=== PATIENT | male | born 1955 | race African-American/Black ===

== ENCOUNTER 2018-03-23 18:51 | Inpatient (IN) ==
[2018-03-23] MEDS ORDERED: methylPREDNISolone SOD SUC 125 MG/2 ML VIAL ONE (18:56)
[2018-03-23] MEDS ORDERED: TERBUTALINE 1 MG/1 ML VIAL SUBCUT ONE (18:57)
[2018-03-23] MEDS ORDERED: ALBUTEROL/IPRATROPIUM 3 ML NEB RESP TX STA (19:04)
[2018-03-23] MEDS ORDERED: methylPREDNISolone SOD SUC 125 MG/2 ML VIAL IV STA (19:04)
[2018-03-23 19:13] LABS: ABG HCO3 24.4 MMOL/L (20-26); ABG Oxygen Saturation 99.1 % (95-100); ABG PCO2 45.6 MM HG (35-48); ABG PH 7.362 (7.35-7.45); ABG TCO2 22.2 MMOL/L (23-27)
[2018-03-23 19:34] LABS: Basophils # 0.1 10*3/uL (0.0-0.2); Basophils % 0.6 % (0.0-0.8); Eosinophils # 0.1 10*3/uL (0.0-0.87); Eosinophils % 0.5 % (0.00-10.9); Hematocrit 41.1 VOL% (42.0-52.0); Immature Granulocytes % 0.4 %; Immature Granulocytes Absolute 0.04 #; Lymphocytes # 3.7 10*3/uL (1.4-4.0); Mean Corpuscular HGB Conc 34.1 GM/DL (32-36); Mean Corpuscular Hemoglobin 34 PG (27-34); Mean Corpuscular Volume 99.5 FL (87-102); Mean Platelet Volume 9.8 FL (9.6-12.0); Monocytes # 1.2 10*3/uL (0.11-0.8); Monocytes % 11.1 % (1.7-12.7); Neutrophils # 5.5 10*3/uL (1.4-7.4); Neutrophils % 52.4 % (38.7-73.9); Platelet Count 276 T/CUMM (130-400); Red Blood Count 4.13 MC/CUMM (3.8-5.5); Red Cell Distribution Width 13.4 % (9.3-17.3); White Blood Count 10.4 T/CUMM (4-12)
[2018-03-23] MEDS ORDERED: MORPHINE 4 MG/1 ML VIAL IV STA (19:35)
[2018-03-23] MEDS ORDERED: ONDANSETRON 4 MG/2 ML VIAL IV ONE (19:35)
[2018-03-23 19:43] LABS: INR 0.9; PT Patient Result 9.4 SECS
[2018-03-23] MEDS ORDERED: ROCURONIUM 100 MG/10 ML VIAL IV ONE (19:47)
[2018-03-23] MEDS ORDERED: ETOMIDATE 20 MG/10 ML VIAL IV ONE (19:47)
[2018-03-23 20:03] LABS: Apearance,Urine Slightly Hazy (Clear); Bacteria,Urine Occasional /HPF (Few); Bilirubin,Urine Negative (Negative); Blood, Urine Small mg/dL (Negative); Glucose,Urine (UA) Negative (Negative); Ketones,Urine Negative (Negative); Nitrite,Urine Negative (Negative); Protein,Urine Negative; RBC,Urine 1 /HPF (0-4); Squamous Epithelial Cell,Urine Occasional /HPF (0-10); Urine Color Yellow (Yellow); Urine Specific Gravity 1.006 (1.001-1.035); Urine Urobilinogen < 2.0 EU/DL (0.2-1.0); WBC,Urine 2 /HPF (0-6)
[2018-03-23 20:13] LABS: Albumin 4.2 G/DL (3.4-5.0); Bilirubin,Total 0.4 MG/DL (0.2-1.0); Calcium 8.9 MG/DL (8.5-10.1); Osmolality,Calculated 269.1 MOS/KG (273-304); Potassium 3.2 MMOL/L (3.5-5.1)
[2018-03-23 20:26] LABS: Barbiturates Screen,Urine Negative (Negative); Benzodiazepines Screen,Urine Negative (Negative); Cannabinoid Screen,Urine Negative (Negative); Opiate Screen,Urine Negative (Negative); Phencyclidine Screen,Urine Negative (Negative)
[2018-03-23] MEDS ORDERED: ASPIRIN 325 MG TABLET PO STA (20:29)
[2018-03-23] MEDS ORDERED: NITROGLYCERIN SL 0.4 MG TABLET SL STA (20:35)
[2018-03-23] MEDS ORDERED: POTASSIUM BICARB EFFERVESCENT 25 MEQ TABLET PO ONE (20:55)
[2018-03-23] MEDS ORDERED: NICOTINE 21 MG/24 HR PATCH TRANSDERM PRN (21:43)
[2018-03-23] MEDS ORDERED: ONDANSETRON 4 MG/2 ML VIAL IV PRN (21:43)
[2018-03-23] MEDS ORDERED: LACTULOSE 20 GM/30 ML UDCUP PO PRN (21:43)
[2018-03-23] MEDS ORDERED: diphenhydrAMINE CAP 25 MG CAPSULE PO PRN (21:43)
[2018-03-23] MEDS ORDERED: ACETAMINOPHEN 325 MG TABLET PO PRN (21:43)
[2018-03-23] MEDS ORDERED: ENOXAPARIN 80 MG/0.8 ML SYRINGE SUBCUT ONE (23:00)
[2018-03-23] MEDS: ALBUTEROL/IPRATROPIUM 3 ML NEB RESP TX SCH (23:06)
[2018-03-23] MEDS ORDERED: MELOXICAM 7.5 MG TABLET PO PRN (23:40)
[2018-03-23] MEDS: NITROGLYCERIN SL 0.4 MG TABLET SL PRN ×3 (23:40→23:56)
[2018-03-23] MEDS ORDERED: MORPHINE 4 MG/1 ML VIAL IV PRN (23:41)
[2018-03-23] MEDS ORDERED: ASPIRIN CHEW 81 MG TABLET PO ONE (23:41)
[2018-03-24] MEDS: SODIUM CHLORIDE 0.9% 1,000 ML IV SCH ×2 (00:05→10:25)
[2018-03-24] MEDS ORDERED: INFLUENZA VIRUS VACCINE 0.5 ML SYRINGE IM ONE (02:04)
[2018-03-24] MEDS: ALBUTEROL/IPRATROPIUM 3 ML NEB RESP TX SCH ×3 (03:01→11:37)
[2018-03-24 04:23] LABS: Basophils % 0.2 % (0.0-0.8); Hematocrit 38.7 VOL% (42.0-52.0); Hemoglobin 13.3 GM/DL (14.0-18.0); Immature Granulocytes % 0.3 %; Immature Granulocytes Absolute 0.02 #; Lymphocytes # 0.6 10*3/uL (1.4-4.0); Mean Corpuscular HGB Conc 34.4 GM/DL (32-36); Mean Corpuscular Hemoglobin 35 PG (27-34); Mean Corpuscular Volume 100.5 FL (87-102); Monocytes # 0.1 10*3/uL (0.11-0.8); Monocytes % 1.3 % (1.7-12.7); Neutrophils # 5.5 10*3/uL (1.4-7.4); Neutrophils % 88.2 % (38.7-73.9); Platelet Count 250 T/CUMM (130-400); Red Blood Count 3.85 MC/CUMM (3.8-5.5); Red Cell Distribution Width 13.3 % (9.3-17.3); White Blood Count 6.2 T/CUMM (4-12)
[2018-03-24 04:49] LABS: Bilirubin,Total 0.6 MG/DL (0.2-1.0); Calcium 8.4 MG/DL (8.5-10.1); Osmolality,Calculated 276.8 MOS/KG (273-304); Potassium 3.7 MMOL/L (3.5-5.1); Total Protein 7.6 G/DL (6.4-8.3)
[2018-03-24] MEDS ORDERED: methylPREDNISolone SOD SUC 40 MG/1 ML VIAL IV SCH (07:30)
[2018-03-24] MEDS: GABAPENTIN 100 MG CAPSULE PO SCH ×2 (08:19→14:22)
[2018-03-24] MEDS ORDERED: FLUTICASONE INH SCH (09:00)
[2018-03-24] MEDS ORDERED: CITALOPRAM 20 MG TABLET PO SCH (09:00)
[2018-03-24] MEDS ORDERED: SALMETEROL INH SCH (09:00)
[2018-03-24] MEDS ORDERED: CLOPIDOGREL 75 MG TABLET PO SCH (09:00)
[2018-03-24] MEDS ORDERED: LOSARTAN 50 MG TABLET PO SCH (09:00)
[2018-03-24] MEDS ORDERED: PANTOPRAZOLE 40 MG TABLET PO SCH (09:00)
[2018-03-24] MEDS ORDERED: DILTIAZEM CD 120 MG CAPSULE PO SCH (09:00)
[2018-03-24] MEDS ORDERED: ATORVASTATIN 40 MG TABLET PO SCH (09:00)
[2018-03-24] MEDS ORDERED: LINACLOTIDE 145 MCG CAPSULE PO SCH (15:00)
[2018-03-24 16:22] VITALS: BP 139/95
[2018-03-24] MEDS ORDERED: MONTELUKAST 10 MG TABLET PO SCH (21:00)
== END 2018-03-24 16:20 | disposition hospice, home (50) | DRG 191 ==
LOC: N.ED 18:51 → N.EDINP 21:43 → N.5E 22:14
PROVIDERS: ADMIT Family Medicine; ATTEND Family Medicine

== ENCOUNTER 2019-04-18 08:52 | Inpatient (IN) ==
[2019-04-18] MEDS ORDERED: methylPREDNISolone SOD SUC 125 MG/2 ML VIAL IV STA (09:15)
[2019-04-18] MEDS ORDERED: ALBUTEROL/IPRATROPIUM 3 ML NEB RESP TX STA (09:15)
[2019-04-18 09:32] LABS: Basophils # 0.1 10*3/uL (0.0-0.2); Basophils % 0.4 % (0.0-0.8); Eosinophils # 0.1 10*3/uL (0.0-0.87); Eosinophils % 0.5 % (0.00-10.9); Hematocrit 35.3 VOL% (42.0-52.0); Hemoglobin 11.7 GM/DL (14.0-18.0); Immature Granulocytes % 0.5 %; Immature Granulocytes Absolute 0.07 #; Lymphocytes # 2.4 10*3/uL (1.4-4.0); Lymphocytes % 17.1 % (21.2-54.2); Mean Corpuscular HGB Conc 33.1 GM/DL (32-36); Mean Corpuscular Volume 99.2 FL (87-102); Mean Platelet Volume 8.5 FL (9.6-12.0); Monocytes % 9.5 % (1.7-12.7); Platelet Count 475 T/CUMM (130-400); Red Blood Count 3.56 MC/CUMM (3.8-5.5); Red Cell Distribution Width 15.9 % (9.3-17.3); White Blood Count 13.9 T/CUMM (4-12)
[2019-04-18 09:51] LABS: Albumin 3.8 G/DL (3.4-5.0); Bilirubin,Total 0.5 MG/DL (0.2-1.0); Calcium 9.4 MG/DL (8.5-10.1); Osmolality,Calculated 283.8 MOS/KG (273-304); Total Protein 7.4 G/DL (6.4-8.3)
[2019-04-18 10:10] LABS: ABG Base Excess 8.8 MMOL/L (-2.5-2.5); ABG HCO3 32.5 MMOL/L (20-26); ABG Oxygen Saturation 94.1 % (95-100); ABG PH 7.471 (7.35-7.45); ABG PO2 66.6 MM HG (80-95); ABG TCO2 30.3 MMOL/L (23-27)
[2019-04-18] MEDS ORDERED: LOSARTAN 50 MG TABLET PO SCH (10:30)
[2019-04-18 10:46] LABS: Barbiturates Screen,Urine Negative (Negative); Benzodiazepines Screen,Urine Negative (Negative); Cannabinoid Screen,Urine Negative (Negative); Opiate Screen,Urine Positive (Negative); Phencyclidine Screen,Urine Negative (Negative)
[2019-04-18 10:55] LABS: Apearance,Urine CLEAR (Clear); Bilirubin,Urine Negative (Negative); Blood, Urine Small mg/dL (Negative); Glucose,Urine (UA) Negative (Negative); Ketones,Urine Negative (Negative); Mucus,Urine Occasional /LPF (Occasional); Nitrite,Urine Negative (Negative); Protein,Urine Negative; RBC,Urine 1 /HPF (0-4); Squamous Epithelial Cell,Urine Occasional /HPF (0-10); Urine Color Colorless (Yellow); Urine Specific Gravity 1.006 (1.001-1.035); Urine Urobilinogen < 2.0 EU/DL (0.2-1.0); WBC,Urine 1 /HPF (0-6)
[2019-04-18] MEDS ORDERED: SILVER SULFADIAZINE 1% CREAM 25 GM TUBE TOP STA (11:01)
[2019-04-18] MEDS: DILTIAZEM 60 MG TABLET PO SCH ×2 (11:12→20:54)
[2019-04-18] MEDS ORDERED: DOCUSATE SODIUM 100 MG CAPSULE PO PRN (11:44)
[2019-04-18] MEDS ORDERED: NICOTINE 21 MG/24 HR PATCH TRANSDERM PRN (11:44)
[2019-04-18] MEDS ORDERED: BISACODYL 5 MG TABLET PO PRN (11:44)
[2019-04-18] MEDS ORDERED: ONDANSETRON 4 MG/2 ML VIAL IV PRN (11:44)
[2019-04-18] MEDS ORDERED: ACETAMINOPHEN 325 MG TABLET PO PRN (11:44)
[2019-04-18] MEDS ORDERED: FUROSEMIDE 20 MG/2 ML VIAL IV STA (11:50)
[2019-04-18 12:38] LABS: Risk Ratio 2.02; VLDL CHOLESTEROL 16.6 MG/DL
[2019-04-18] MEDS: ALBUTEROL/IPRATROPIUM 3 ML NEB RESP TX SCH ×2 (13:21→19:19)
[2019-04-18] MEDS ORDERED: INFLUENZA VIRUS VACCINE 0.5 ML SYRINGE IM ONE (13:52)
[2019-04-18] MEDS: PANTOPRAZOLE 40 MG TABLET PO SCH (14:22)
[2019-04-18] MEDS: POTASSIUM CHLORIDE 20 MEQ TABLET PO PRN ×3 (14:23→18:25)
[2019-04-18] MEDS ORDERED: MAGNESIUM SULF RIDER 4 GM in PREMIX 1 EACH IV PRN (14:48)
[2019-04-18] MEDS ORDERED: MAGNESIUM SULF RIDER 2 GM in PREMIX 1 EACH IV PRN (14:48)
[2019-04-18] MEDS ORDERED: PANTOPRAZOLE 40 MG TABLET PO SCH (15:30)
[2019-04-18] MEDS ORDERED: hydrALAZINE 20 MG/1 ML VIAL IV PRN (16:22)
[2019-04-18] MEDS: LINACLOTIDE 145 MCG CAPSULE PO SCH (16:54)
[2019-04-18] MEDS: ATORVASTATIN 40 MG TABLET PO SCH (16:54)
[2019-04-18] MEDS: MONTELUKAST 10 MG TABLET PO SCH (16:54)
[2019-04-18] MEDS: CITALOPRAM 20 MG TABLET PO SCH (16:54)
[2019-04-18] MEDS: ASPIRIN EC 81 MG TABLET PO SCH (16:55)
[2019-04-18] MEDS: CLOPIDOGREL 75 MG TABLET PO SCH (16:55)
[2019-04-18] MEDS: LOSARTAN 50 MG TABLET PO SCH (16:56)
[2019-04-18] MEDS: BUDESONIDE/FORMOTEROL 160-4.5 INHALER 6 GM INH SCH (16:59)
[2019-04-18] MEDS: GABAPENTIN 100 MG CAPSULE PO SCH ×2 (18:00→20:54)
[2019-04-18] MEDS: methylPREDNISolone SOD SUC 125 MG/2 ML VIAL IV SCH (18:26)
[2019-04-18] MEDS ORDERED: ALBUTEROL 2.5 MG/3 ML NEB RESP TX PRN (19:00)
[2019-04-18] MEDS: MEGESTROL 40 MG TABLET PO SCH (20:54)
[2019-04-18] MEDS: FLUTICASONE/SALMETEROL 100-50 DISKUS 14 DOSE INH SCH (20:54)
[2019-04-18] MEDS: ENOXAPARIN 40 MG/0.4 ML SYRINGE SUBCUT SCH (20:54)
[2019-04-19] MEDS: ALBUTEROL/IPRATROPIUM 3 ML NEB RESP TX SCH ×6 (00:54→23:14)
[2019-04-19] MEDS: methylPREDNISolone SOD SUC 125 MG/2 ML VIAL IV SCH ×2 (01:03→09:51)
[2019-04-19 05:23] LABS: Hematocrit 32.4 VOL% (42.0-52.0); Hemoglobin 10.8 GM/DL (14.0-18.0); Immature Granulocytes % 0.5 %; Immature Granulocytes Absolute 0.04 #; Lymphocytes # 0.8 10*3/uL (1.4-4.0); Lymphocytes % 9.5 % (21.2-54.2); Mean Corpuscular HGB Conc 33.3 GM/DL (32-36); Mean Corpuscular Volume 96.1 FL (87-102); Mean Platelet Volume 8.9 FL (9.6-12.0); Monocytes % 4.1 % (1.7-12.7); Neutrophils % 85.9 % (38.7-73.9); Platelet Count 494 T/CUMM (130-400); Red Blood Count 3.37 MC/CUMM (3.8-5.5); Red Cell Distribution Width 15.5 % (9.3-17.3); White Blood Count 8.7 T/CUMM (4-12)
[2019-04-19 05:36] LABS: Osmolality,Calculated 277.7 MOS/KG (273-304)
[2019-04-19] MEDS: LOSARTAN 50 MG TABLET PO SCH (09:30)
[2019-04-19] MEDS: BUDESONIDE/FORMOTEROL 160-4.5 INHALER 6 GM INH SCH (09:50)
[2019-04-19] MEDS: CLOPIDOGREL 75 MG TABLET PO SCH (09:52)
[2019-04-19] MEDS: LINACLOTIDE 145 MCG CAPSULE PO SCH (09:52)
[2019-04-19] MEDS: ASPIRIN EC 81 MG TABLET PO SCH (09:52)
[2019-04-19] MEDS: CITALOPRAM 20 MG TABLET PO SCH (09:52)
[2019-04-19] MEDS: MEGESTROL 40 MG TABLET PO SCH ×3 (09:53→21:36)
[2019-04-19] MEDS: ATORVASTATIN 40 MG TABLET PO SCH (09:53)
[2019-04-19] MEDS: DILTIAZEM 60 MG TABLET PO SCH ×2 (09:53→21:35)
[2019-04-19] MEDS: NICOTINE 14 MG/24 HR PATCH TRANSDERM SCH (09:55)
[2019-04-19] MEDS: GABAPENTIN 100 MG CAPSULE PO SCH ×3 (09:55→21:36)
[2019-04-19] MEDS: PANTOPRAZOLE 40 MG TABLET PO SCH (09:55)
[2019-04-19] MEDS: FLUTICASONE/SALMETEROL 100-50 DISKUS 14 DOSE INH SCH ×2 (09:56→21:35)
[2019-04-19] MEDS: MONTELUKAST 10 MG TABLET PO SCH (09:57)
[2019-04-19] MEDS: POTASSIUM CHLORIDE 20 MEQ TABLET PO PRN (10:01)
[2019-04-19] MEDS: ENOXAPARIN 40 MG/0.4 ML SYRINGE SUBCUT SCH (21:36)
[2019-04-20] MEDS: ALBUTEROL/IPRATROPIUM 3 ML NEB RESP TX SCH ×5 (03:52→18:59)
[2019-04-20 07:31] LABS: Basophils % 0.1 % (0.0-0.8); Hematocrit 30.9 VOL% (42.0-52.0); Hemoglobin 10.4 GM/DL (14.0-18.0); Immature Granulocytes % 0.6 %; Immature Granulocytes Absolute 0.09 #; Lymphocytes # 0.7 10*3/uL (1.4-4.0); Lymphocytes % 4.2 % (21.2-54.2); Mean Corpuscular HGB Conc 33.7 GM/DL (32-36); Mean Corpuscular Volume 95.4 FL (87-102); Mean Platelet Volume 8.5 FL (9.6-12.0); Monocytes % 8.3 % (1.7-12.7); Neutrophils % 86.8 % (38.7-73.9); Platelet Count 452 T/CUMM (130-400); Red Blood Count 3.24 MC/CUMM (3.8-5.5); Red Cell Distribution Width 15.4 % (9.3-17.3); White Blood Count 15.3 T/CUMM (4-12)
[2019-04-20 07:52] LABS: Calcium 8.9 MG/DL (8.5-10.1); Osmolality,Calculated 277.1 MOS/KG (273-304)
[2019-04-20 08:04] LABS: Hypochromasia 1+; Lymphocytes 5 % (20-55); Segmented Neutrophils 93 % (50-85); Total Cells Counted 100
[2019-04-20] MEDS: LOSARTAN 50 MG TABLET PO SCH (09:34)
[2019-04-20] MEDS: PANTOPRAZOLE 40 MG TABLET PO SCH (09:34)
[2019-04-20] MEDS: DILTIAZEM 60 MG TABLET PO SCH ×2 (09:34→20:34)
[2019-04-20] MEDS: CLOPIDOGREL 75 MG TABLET PO SCH (09:34)
[2019-04-20] MEDS: GABAPENTIN 100 MG CAPSULE PO SCH ×3 (09:34→20:34)
[2019-04-20] MEDS: ASPIRIN EC 81 MG TABLET PO SCH (09:36)
[2019-04-20] MEDS: CITALOPRAM 20 MG TABLET PO SCH (09:36)
[2019-04-20] MEDS: MONTELUKAST 10 MG TABLET PO SCH (09:36)
[2019-04-20] MEDS: NICOTINE 14 MG/24 HR PATCH TRANSDERM SCH (09:37)
[2019-04-20] MEDS: ATORVASTATIN 40 MG TABLET PO SCH (09:37)
[2019-04-20] MEDS: BUDESONIDE/FORMOTEROL 160-4.5 INHALER 6 GM INH SCH (09:38)
[2019-04-20] MEDS: FLUTICASONE/SALMETEROL 100-50 DISKUS 14 DOSE INH SCH ×2 (09:38→20:34)
[2019-04-20] MEDS: MEGESTROL 40 MG TABLET PO SCH ×3 (09:42→20:34)
[2019-04-20] MEDS: FLUTICASONE 50 MCG NASAL SPRAY 16 GM BOTTLE BOTH NARES SCH (11:21)
[2019-04-20] MEDS: LINACLOTIDE 145 MCG CAPSULE PO SCH (11:23)
[2019-04-20] MEDS: HydrOXYzine PAMOATE 25 MG CAPSULE PO PRN (14:57)
[2019-04-20] MEDS: ENOXAPARIN 40 MG/0.4 ML SYRINGE SUBCUT SCH (20:34)
[2019-04-21] MEDS: ALBUTEROL/IPRATROPIUM 3 ML NEB RESP TX SCH ×6 (00:33→19:14)
[2019-04-21 08:10] LABS: Basophils % 0.1 % (0.0-0.8); Hematocrit 30.5 VOL% (42.0-52.0); Hemoglobin 10.2 GM/DL (14.0-18.0); Immature Granulocytes % 0.8 %; Immature Granulocytes Absolute 0.11 #; Lymphocytes # 1.8 10*3/uL (1.4-4.0); Mean Corpuscular HGB Conc 33.4 GM/DL (32-36); Mean Corpuscular Volume 97.1 FL (87-102); Mean Platelet Volume 8.4 FL (9.6-12.0); Monocytes % 12.2 % (1.7-12.7); Neutrophils % 74.9 % (38.7-73.9); Platelet Count 451 T/CUMM (130-400); Red Blood Count 3.14 MC/CUMM (3.8-5.5); Red Cell Distribution Width 15.7 % (9.3-17.3); White Blood Count 14.6 T/CUMM (4-12)
[2019-04-21 08:37] LABS: Calcium 8.7 MG/DL (8.5-10.1); Osmolality,Calculated 283.3 MOS/KG (273-304)
[2019-04-21 08:47] LABS: Calcium 8.7 MG/DL (8.5-10.1); Osmolality,Calculated 284.3 MOS/KG (273-304)
[2019-04-21] MEDS: DILTIAZEM 60 MG TABLET PO SCH ×2 (09:45→21:42)
[2019-04-21] MEDS: CITALOPRAM 20 MG TABLET PO SCH (09:46)
[2019-04-21] MEDS: ATORVASTATIN 40 MG TABLET PO SCH (09:46)
[2019-04-21] MEDS: MONTELUKAST 10 MG TABLET PO SCH (09:46)
[2019-04-21] MEDS: MEGESTROL 40 MG TABLET PO SCH ×3 (09:46→21:46)
[2019-04-21] MEDS: FLUTICASONE/SALMETEROL 100-50 DISKUS 14 DOSE INH SCH ×2 (09:47→21:46)
[2019-04-21] MEDS: predniSONE 20 MG TABLET PO SCH (09:47)
[2019-04-21] MEDS: ASPIRIN EC 81 MG TABLET PO SCH (09:47)
[2019-04-21] MEDS: BUDESONIDE/FORMOTEROL 160-4.5 INHALER 6 GM INH SCH (09:47)
[2019-04-21] MEDS: LOSARTAN 50 MG TABLET PO SCH (09:47)
[2019-04-21] MEDS: CLOPIDOGREL 75 MG TABLET PO SCH (09:47)
[2019-04-21] MEDS: FLUTICASONE 50 MCG NASAL SPRAY 16 GM BOTTLE BOTH NARES SCH (09:47)
[2019-04-21] MEDS: GABAPENTIN 100 MG CAPSULE PO SCH ×3 (09:47→21:42)
[2019-04-21] MEDS: PANTOPRAZOLE 40 MG TABLET PO SCH (09:47)
[2019-04-21] MEDS: NICOTINE 14 MG/24 HR PATCH TRANSDERM SCH (09:48)
[2019-04-21] MEDS: LINACLOTIDE 145 MCG CAPSULE PO SCH (09:48)
[2019-04-21] MEDS: ENOXAPARIN 40 MG/0.4 ML SYRINGE SUBCUT SCH (21:43)
[2019-04-22] MEDS ORDERED: OXYMETAZOLINE 0.05% NASAL SPRAY 15 ML BOTTLE BOTH NARES PRN (00:26)
[2019-04-22] MEDS: ALBUTEROL/IPRATROPIUM 3 ML NEB RESP TX SCH ×4 (00:28→12:07)
[2019-04-22] MEDS: HydrOXYzine PAMOATE 25 MG CAPSULE PO PRN (00:38)
[2019-04-22 07:11] LABS: Hematocrit 26.4 VOL% (42.0-52.0); Hemoglobin 8.8 GM/DL (14.0-18.0)
[2019-04-22] MEDS: NICOTINE 14 MG/24 HR PATCH TRANSDERM SCH (09:08)
[2019-04-22] MEDS: MEGESTROL 40 MG TABLET PO SCH (09:08)
[2019-04-22] MEDS: predniSONE 20 MG TABLET PO SCH (09:08)
[2019-04-22] MEDS: ASPIRIN EC 81 MG TABLET PO SCH (09:08)
[2019-04-22] MEDS: LOSARTAN 50 MG TABLET PO SCH (09:09)
[2019-04-22] MEDS: CLOPIDOGREL 75 MG TABLET PO SCH (09:09)
[2019-04-22] MEDS: GABAPENTIN 100 MG CAPSULE PO SCH (09:09)
[2019-04-22] MEDS: PANTOPRAZOLE 40 MG TABLET PO SCH (09:09)
[2019-04-22] MEDS: CITALOPRAM 20 MG TABLET PO SCH (09:09)
[2019-04-22] MEDS: MONTELUKAST 10 MG TABLET PO SCH (09:09)
[2019-04-22] MEDS: DILTIAZEM 60 MG TABLET PO SCH (09:09)
[2019-04-22] MEDS: FLUTICASONE 50 MCG NASAL SPRAY 16 GM BOTTLE BOTH NARES SCH (09:10)
[2019-04-22] MEDS: FLUTICASONE/SALMETEROL 100-50 DISKUS 14 DOSE INH SCH (09:10)
[2019-04-22] MEDS: ATORVASTATIN 40 MG TABLET PO SCH (09:10)
[2019-04-22] MEDS: BUDESONIDE/FORMOTEROL 160-4.5 INHALER 6 GM INH SCH (09:10)
[2019-04-22] MEDS: LINACLOTIDE 145 MCG CAPSULE PO SCH (09:16)
[2019-04-22 13:55] VITALS: BP 137/83
== END 2019-04-22 14:50 | disposition home health service (06) | DRG 191 ==
LOC: EDBD → EDUNIT# → N.EDINP 08:52 → N.ED 08:52 → SUATTDRO 11:44 → N.2W 12:39 → SUATTDRO 04-19 10:55 → N.TELES 04-19 11:49
PROVIDERS: ADMIT Nurse Practitioner Gerontology; ATTEND Internal Medicine